=== PATIENT | female | born 1985 | race Caucasian/White ===

== ENCOUNTER 2017-09-24 13:31 | Emergency (ER) | payer SELFPAY ==
[~2017-09-24] VITALS: Ht 160 cm; Wt 90.0 kg
[~2017-09-24 13:31] MED LIST: ACYCLOVIR800 MG PO; ALAVERT1 TAB PO; ALLERGY1 TAB PO; AMOXICILLIN500 MG PO; AMOXICILLIN875 MG PO; ANUCORT-HC25 MG TOP; BACTRIM DS1 TAB PO; CIPROFLOXACN500 MG OR; CIPROFLOXACN500 MG PO; CLINDAMYCIN11 EX; DOXYCYC MONO100 M1 PO; DOXYCYCL HYC100 MG OR; FLONASE NASAL50 MCG; IBUPROFEN600 MG PO; LORTAB5 PO; MUCINEX600 MG PO; NO; NORCO1 TA1 PO; PRE-NATAL PO; SINGULAIR 10 MG10 MG; TERBINAFINE250 MG OR; ZITHROMAX250 MG PO; ZOFRAN ODT8 MG SL; ZOVIRAX51 EX; ZOVIRAX51 TOP; ZYRTEC10 MG PO; [UNRECOGNIZED DRUG - OTHER] EX
[2017-09-24 14:49] LABS: URINE BILIRUBIN - DIPSTICK NEGATIVE (NEGATIVE); URINE BLOOD DIPSTICK LARGE (NEGATIVE); URINE COLOR YELLOW; URINE GLUCOSE - DIPSTICK NEGATIVE (NEGATIVE); URINE KETONE NEGATIVE (NEGATIVE); URINE LEUK ESTERASE NEGATIVE (NEGATIVE); URINE PH 6.5 (4.5-8.0); URINE PROTEIN - DIPSTICK TRACE mg/dL (NEG-TRACE); URINE SPECIFIC GRAVITY 1.025; URINE UROBILINOGEN - DIPSTICK 0.2 E.U./dL (0.2)
[2017-09-24 14:51] LABS: IMMATURE GRANULOCYTES 0.3 % (0.0-5.0); MEAN CELL VOLUME 95.1 fL CALC (80.0-100.0); MEAN CORPUSCULAR HGB 32.1 pG CALC (26.0-32.0); MEAN CORPUSCULAR HGB CONC 33.7 g/L CALC (32.0-36.0); NEUT# 8.87 thou/uL (2.00-7.15); RED BLOOD COUNT 4.52 mill/uL (4.20-5.60); RED CELL DISTRI WIDTH 12.2 % (11.5-15.5); URINE CLARITY CLEAR
[2017-09-24 14:52] LABS: HEMOGLOBIN 14.5 g/dl (12.0-16.0); URINE NITRITE - DIPSTICK NEGATIVE (Negative)
[2017-09-24 14:57] LABS: URINE BACTERIA RARE hpf; URINE EPITHELIAL CELLS RARE EPI/hpf (0-FEW); URINE WBC 0-2 WBC/hpf (0-5)
[2017-09-24 15:05] LABS: ALKALINE PHOSPHATASE 130 u/l (38-126); ANION GAP 19 (6-22 (CALC)); BILIRUBIN, TOTAL 0.8 mg/dL (0.0-1.4); BUN 15 mg/dL (7-17); BUN/CREATININE RATIO 18 (12-20 (CALC)); CARBON DIOXIDE 23 mmol/l (22-30); CHLORIDE 104 mmol/l (95-108); CREATININE 0.8 mg/dL (0.5-1.0); GFR > 60 ML/MIN (>=60 (CALC)); GFR FOR AFR.AMER. > 60 ML/MIN (>=60 (CALC)); LIPASE 79 u/l (23-300); POTASSIUM 4.4 mmol/l (3.5-5.1); SGPT/ALT 20 u/l (9-52); SODIUM 141 mmol/l (137-146)
[2017-09-24 15:08] LABS: ALBUMIN 4.7 g/dL (3.2-5.0); SGOT/AST 45 u/l (14-36); TOTAL PROTEIN 8.4 g/dL (6.3-8.2)
[2017-09-24] MEDS ORDERED: CIPRO XR500 MG PO (15:50)
[2017-09-24] MEDS ORDERED: PERCOCET 5/325M1 TAB PO (15:57)
[2017-09-24] MEDS ORDERED: TAMSULOSIN0.4 MG PO (15:57)
[2017-09-24] MEDS ORDERED: KEFLEX500 M1 PO (15:57)
[2017-09-24 16:05] VITALS: BP 139/71
== END 2017-09-24 16:05 | disposition home or self-care (01) | DRG 694 ==
LOC: ED 13:31
DX: N20.0 Calculus of kidney (principal); Z87.442 Personal history of urinary calculi

== ENCOUNTER 2017-11-24 19:59 | Emergency (ER) | payer OTHER ==
[~2017-11-24] VITALS: Ht 157.5 cm; Wt 68.1 kg
[~2017-11-24 19:59] MED LIST changes: +CIPRO XR500 MG PO; +KEFLEX500 M1 PO; +PERCOCET 5/325M1 TAB PO; +TAMSULOSIN0.4 MG PO
[2017-11-24 20:34] LABS: HEMOGLOBIN 13.7 g/dl (12.0-16.0); IMMATURE GRANULOCYTES 0.7 % (0.0-5.0); MEAN CORPUSCULAR HGB 32.1 pG CALC (26.0-32.0); MEAN CORPUSCULAR HGB CONC 33.4 g/L CALC (32.0-36.0); NEUT# 14.72 thou/uL (2.00-7.15); RED BLOOD COUNT 4.27 mill/uL (4.20-5.60); RED CELL DISTRI WIDTH 12.2 % (11.5-15.5)
[2017-11-24 20:35] LABS: URINE BILIRUBIN - DIPSTICK NEGATIVE (NEGATIVE); URINE BLOOD DIPSTICK TRACE-INTACT (NEGATIVE); URINE CLARITY CLEAR; URINE COLOR YELLOW; URINE GLUCOSE - DIPSTICK NEGATIVE (NEGATIVE); URINE KETONE NEGATIVE (NEGATIVE); URINE LEUK ESTERASE NEGATIVE (NEGATIVE); URINE NITRITE - DIPSTICK NEGATIVE (Negative); URINE PH 6.5 (4.5-8.0); URINE PROTEIN - DIPSTICK NEGATIVE (NEG-TRACE); URINE UROBILINOGEN - DIPSTICK 0.2 E.U./dL (0.2)
[2017-11-24 20:40] LABS: ALBUMIN 4.4 g/dL (3.2-5.0); ALKALINE PHOSPHATASE 90 u/l (38-126); ANION GAP 15 (6-22 (CALC)); BILIRUBIN, TOTAL 0.3 mg/dL (0.0-1.4); BUN 16 mg/dL (7-17); BUN/CREATININE RATIO 20 (12-20 (CALC)); CARBON DIOXIDE 27 mmol/l (22-30); CHLORIDE 105 mmol/l (95-108); CREATININE 0.8 mg/dL (0.5-1.0); GFR > 60 ML/MIN (>=60 (CALC)); GFR FOR AFR.AMER. > 60 ML/MIN (>=60 (CALC)); POTASSIUM 3.8 mmol/l (3.5-5.1); SGOT/AST 24 u/l (14-36); SODIUM 142 mmol/l (137-146); TOTAL PROTEIN 7.3 g/dL (6.3-8.2)
[2017-11-24] MEDS ORDERED: CIPROFLOXACN500 MG PO (22:07)
[2017-11-24] MEDS ORDERED: TAMSULOSIN0.4 MG PO (22:07)
[2017-11-24] MEDS ORDERED: PERCOCET 5/321 COMBO PO (22:07)
[2017-11-24] MEDS ORDERED: PHENERGAN25 MG RE (22:07)
[2017-11-24 22:45] VITALS: BP 124/78
== END 2017-11-24 22:45 | disposition home or self-care (01) ==
LOC: ED 19:59
PROVIDERS: Family Medicine
DX: N13.2 Hydronephrosis with renal and ureteral calculous obstruction (principal); Z87.442 Personal history of urinary calculi; R10.32 Left lower quadrant pain; R11.2 Nausea with vomiting, unspecified

== ENCOUNTER 2018-09-05 15:33 | Emergency (ER) | payer SELFPAY ==
[~2018-09-05] VITALS: Ht 157.5 cm; Wt 80.0 kg
[~2018-09-05 15:33] MED LIST changes: +PERCOCET 5/321 COMBO PO; +PHENERGAN25 MG RE
[2018-09-05 16:51] LABS: HEMATOCRIT 41.2 % (37.0-47.0); HEMOGLOBIN 13.7 g/dl (12.0-16.0); IMMATURE GRANULOCYTES 0.3 % (0.0-5.0); MEAN CELL VOLUME 94.7 fL CALC (80.0-100.0); MEAN CORPUSCULAR HGB 31.5 pG CALC (26.0-32.0); MEAN CORPUSCULAR HGB CONC 33.3 g/L CALC (32.0-36.0); NEUT# 5.46 thou/uL (2.00-7.15); RED BLOOD COUNT 4.35 mill/uL (4.20-5.60); RED CELL DISTRI WIDTH 12.3 % (11.5-15.5)
[2018-09-05 17:15] LABS: BUN 15 mg/dL (7-17); BUN/CREATININE RATIO 19 (12-20 (CALC)); CARBON DIOXIDE 25 mmol/l (22-30); CHLORIDE 104 mmol/l (95-108); CREATININE 0.8 mg/dL (0.5-1.0); GFR > 60 ML/MIN (>=60 (CALC)); GFR FOR AFR.AMER. > 60 ML/MIN (>=60 (CALC)); SODIUM 139 mmol/l (137-146)
[2018-09-05 17:19] LABS: ANION GAP 15 (6-22 (CALC)); POTASSIUM 4.6 mmol/l (3.5-5.1)
[2018-09-05 18:24] LABS: TSH, 3RD GENERATION 2.07 uIU/mL (0.47 - 4.68)
[2018-09-05 18:53] VITALS: BP 136/84
== END 2018-09-05 18:55 | disposition home or self-care (01) | DRG 310 ==
LOC: ED 15:33
PROVIDERS: Family Medicine
DX: R00.2 Palpitations (principal); R07.9 Chest pain, unspecified

== ENCOUNTER 2019-11-19 16:15 | Emergency (ER) | payer SELFPAY ==
[~2019-11-19] VITALS: Ht 157.5 cm; Wt 77.3 kg
[2019-11-19 16:57] LABS: HEMOGLOBIN 13.8 g/dl (12.0-16.0); IMMATURE GRANULOCYTES 0.2 % (0.0-5.0); MEAN CELL VOLUME 93.4 fL CALC (80.0-100.0); MEAN CORPUSCULAR HGB 31.4 pG CALC (26.0-32.0); MEAN CORPUSCULAR HGB CONC 33.7 g/dL CAL (32.0-36.0); NEUT# 6.24 thou/uL (2.00-7.15); RED BLOOD COUNT 4.39 mill/uL (4.20-5.60); RED CELL DISTRI WIDTH 12.4 % (11.5-15.5)
[2019-11-19 17:17] LABS: ALBUMIN 4.2 g/dL (3.2-5.0); ALKALINE PHOSPHATASE 81 u/l (38-126); ANION GAP 13 (6-22 (CALC)); BILIRUBIN, TOTAL 0.3 mg/dL (0.0-1.4); BUN 11 mg/dL (7-17); BUN/CREATININE RATIO 14 (12-20 (CALC)); CARBON DIOXIDE 25 mmol/l (22-30); CHLORIDE 103 mmol/l (95-108); CREATININE 0.8 mg/dL (0.5-1.0); GFR > 60 ML/MIN (>=60 (CALC)); GFR FOR AFR.AMER. > 60 ML/MIN (>=60 (CALC)); SGOT/AST 19 u/l (14-36); SODIUM 137 mmol/l (137-146); TOTAL PROTEIN 7.1 g/dL (6.3-8.2)
[2019-11-19 17:33] LABS: BETA-HCG, QUANT(RESULT NUMBER) 9 mIU/mL
[2019-11-19 17:35] LABS: POTASSIUM 3.6 mmol/l (3.5-5.1)
[2019-11-19 19:34] VITALS: BP 158/86
== END 2019-11-19 19:34 | disposition home or self-care (01) | DRG 779 ==
LOC: ED 16:15
PROVIDERS: Family Medicine
DX: O03.4 Incomplete spontaneous abortion without complication (principal)

== ENCOUNTER 2020-07-09 14:20 | Emergency (ER) | payer OTHER ==
[~2020-07-09] VITALS: Ht 157.5 cm; Wt 81.0 kg
[2020-07-09 14:50] LABS: HEMATOCRIT 36.8 % (37.0-47.0); HEMOGLOBIN 12.3 g/dl (12.0-16.0); IMMATURE GRANULOCYTES 0.2 % (0.0-5.0); MEAN CELL VOLUME 94.6 fL CALC (80.0-100.0); MEAN CORPUSCULAR HGB 31.6 pG CALC (26.0-32.0); MEAN CORPUSCULAR HGB CONC 33.4 g/dL CAL (32.0-36.0); NEUT# 9.92 thou/uL (2.00-7.15); RED BLOOD COUNT 3.89 mill/uL (4.20-5.60); RED CELL DISTRI WIDTH 13.4 % (11.5-15.5); URINE BILIRUBIN - DIPSTICK NEGATIVE (NEGATIVE); URINE BLOOD DIPSTICK MODERATE (NEGATIVE); URINE COLOR YELLOW; URINE GLUCOSE - DIPSTICK NEGATIVE (NEGATIVE); URINE KETONE NEGATIVE (NEGATIVE); URINE PH 6.5 (4.5-8.0); URINE PROTEIN - DIPSTICK 30 mg/dL (NEG-TRACE); URINE UROBILINOGEN - DIPSTICK 0.2 E.U./dL (0.2)
[2020-07-09 15:00] LABS: URINE LEUK ESTERASE MODERATE (NEGATIVE); URINE NITRITE - DIPSTICK POSITIVE (Negative)
[2020-07-09 15:01] LABS: URINE BACTERIA MODERATE hpf; URINE SQUAMOUS EPITHELIAL CELL MANY EPI/hpf (0-FEW)
[2020-07-09 15:11] LABS: ALBUMIN 3.6 g/dL (3.2-5.0); ALKALINE PHOSPHATASE 103 u/l (38-126); ANION GAP 11 (6-22 (CALC)); BILIRUBIN, TOTAL 0.3 mg/dL (0.0-1.4); BUN 7 mg/dL (7-17); BUN/CREATININE RATIO 10 (12-20 (CALC)); CARBON DIOXIDE 23 mmol/l (22-30); CHLORIDE 103 mmol/l (95-108); CREATININE 0.7 mg/dL (0.5-1.0); GFR > 60 ML/MIN (>=60 (CALC)); GFR FOR AFR.AMER. > 60 ML/MIN (>=60 (CALC)); POTASSIUM 3.7 mmol/l (3.5-5.1); SGOT/AST 19 u/l (14-36); SODIUM 133 mmol/l (137-146); TOTAL PROTEIN 6.5 g/dL (6.3-8.2)
[2020-07-09 15:52] VITALS: BP 133/68
[2020-08-23] MEDS ORDERED: BL IBUPROFEN200 MG PO (13:11)
[2020-08-23] MEDS ORDERED: EQ PAIN RELIEV325 MG PO (13:12)
[2020-08-23] MEDS ORDERED: IRON (FERROUS S50 MG PO (13:13)
[2020-08-23] MEDS ORDERED: MIRALAX MIX-IN17 GM PO (13:14)
== END 2020-07-09 15:45 ==
LOC: ED 14:20
DX: O23.03 Infections of kidney in pregnancy, third trimester (principal); B95.2 Enterococcus as the cause of diseases classified elsewhere; Z3A.32 32 weeks gestation of pregnancy; Z87.442 Personal history of urinary calculi

== ENCOUNTER → 2020-08-27 | Day surgery (SDC) | payer OTHER ==
[~2020-08-27] MED LIST changes: +BL IBUPROFEN200 MG PO; +EQ PAIN RELIEV325 MG PO; +IRON (FERROUS S50 MG PO; +KEFLEX500 MG PO; +MIRALAX MIX-IN17 GM PO
[2020-08-27 11:25] VITALS: BP 127/72
== END | disposition home or self-care (01) ==
LOC: ORM 07:38
PROVIDERS: ATTEND Urology
DX: N20.1 Calculus of ureter (principal); Q62.5 Duplication of ureter; Z87.442 Personal history of urinary calculi
CPT/HCPCS: J0131; Q9967

== ENCOUNTER 2020-08-28 21:53 | Emergency (ER) | payer OTHER ==
[~2020-08-28] VITALS: Ht 157.5 cm; Wt 80.0 kg
[~2020-08-28 21:53] MED LIST changes: -KEFLEX500 MG PO
[2020-08-28 23:42] LABS: HEMATOCRIT 35.6 % (37.0-47.0); HEMOGLOBIN 11.6 g/dl (12.0-16.0); IMMATURE GRANULOCYTES 0.3 % (0.0-5.0); MEAN CELL VOLUME 93.4 fL CALC (80.0-100.0); MEAN CORPUSCULAR HGB 30.4 pG CALC (26.0-32.0); MEAN CORPUSCULAR HGB CONC 32.6 g/dL CAL (32.0-36.0); NEUT# 11.67 thou/uL (2.00-7.15); RED BLOOD COUNT 3.81 mill/uL (4.20-5.60); RED CELL DISTRI WIDTH 12.1 % (11.5-15.5)
[2020-08-29 00:21] LABS: ALBUMIN 3.4 g/dL (3.2-5.0); ALKALINE PHOSPHATASE 82 u/l (38-126); ANION GAP 12 (6-22 (CALC)); BILIRUBIN, TOTAL 0.2 mg/dL (0.0-1.4); BUN 12 mg/dL (7-17); BUN/CREATININE RATIO 13 (12-20 (CALC)); CARBON DIOXIDE 22 mmol/l (22-30); CHLORIDE 106 mmol/l (95-108); CREATININE 0.9 mg/dL (0.5-1.0); GFR > 60 ML/MIN (>=60 (CALC)); GFR FOR AFR.AMER. > 60 ML/MIN (>=60 (CALC)); POTASSIUM 3.3 mmol/l (3.5-5.1); SGOT/AST 26 u/l (14-36); SODIUM 136 mmol/l (137-146); TOTAL PROTEIN 6.5 g/dL (6.3-8.2)
[2020-08-29 00:25] LABS: URINE BILIRUBIN - DIPSTICK NEGATIVE (NEGATIVE); URINE BLOOD DIPSTICK LARGE (NEGATIVE); URINE COLOR YELLOW; URINE GLUCOSE - DIPSTICK NEGATIVE (NEGATIVE); URINE KETONE NEGATIVE (NEGATIVE); URINE PROTEIN - DIPSTICK TRACE mg/dL (NEG-TRACE); URINE UROBILINOGEN - DIPSTICK 0.2 E.U./dL (0.2)
[2020-08-29 00:27] LABS: URINE LEUK ESTERASE SMALL (NEGATIVE); URINE NITRITE - DIPSTICK NEGATIVE (Negative)
[2020-08-29] MEDS ORDERED: KEFLEX500 MG PO (00:46)
[2020-08-29 00:49] LABS: URINE BACTERIA FEW hpf; URINE RBC 50-100 RBC/hpf (0-5); URINE SQUAMOUS EPITHELIAL CELL FEW EPI/hpf (0-FEW); URINE WBC 20-50 WBC/hpf (0-5)
[2020-08-29 01:03] VITALS: BP 123/70
== END 2020-08-29 01:10 | disposition home or self-care (01) ==
LOC: ED 21:53
PROVIDERS: Family Medicine
DX: N39.0 Urinary tract infection, site not specified (principal); Z87.442 Personal history of urinary calculi; Z98.890 Other specified postprocedural states; Z20.822 Contact with and (suspected) exposure to COVID-19

== ENCOUNTER 2020-11-17 12:59 | Emergency (ER) | payer OTHER ==
[~2020-11-17] VITALS: Ht 157.5 cm; Wt 68.0 kg
[~2020-11-17 12:59] MED LIST changes: +KEFLEX500 MG PO
[2020-11-17 13:50] LABS: URINE BILIRUBIN - DIPSTICK NEGATIVE (NEGATIVE); URINE BLOOD DIPSTICK SMALL (NEGATIVE); URINE COLOR YELLOW; URINE GLUCOSE - DIPSTICK NEGATIVE (NEGATIVE); URINE KETONE TRACE mg/dL (NEGATIVE); URINE PROTEIN - DIPSTICK TRACE mg/dL (NEG-TRACE); URINE UROBILINOGEN - DIPSTICK 0.2 E.U./dL (0.2)
[2020-11-17 13:51] LABS: HEMATOCRIT 38.9 % (37.0-47.0); HEMOGLOBIN 12.6 g/dl (12.0-16.0); IMMATURE GRANULOCYTES 0.2 % (0.0-5.0); MEAN CELL VOLUME 90.3 fL CALC (80.0-100.0); MEAN CORPUSCULAR HGB 29.2 pG CALC (26.0-32.0); MEAN CORPUSCULAR HGB CONC 32.4 g/dL CAL (32.0-36.0); NEUT# 16.6 thou/uL (2.00-7.15); RED BLOOD COUNT 4.31 mill/uL (4.20-5.60); RED CELL DISTRI WIDTH 13.5 % (11.5-15.5)
[2020-11-17 13:52] LABS: URINE LEUK ESTERASE SMALL (NEGATIVE); URINE NITRITE - DIPSTICK NEGATIVE (Negative)
[2020-11-17 14:00] LABS: URINE BACTERIA MODERATE hpf; URINE SQUAMOUS EPITHELIAL CELL MANY EPI/hpf (0-FEW)
[2020-11-17 14:03] LABS: ALKALINE PHOSPHATASE 112 u/l (38-126); BUN 15 mg/dL (7-17); BUN/CREATININE RATIO 15 (12-20 (CALC)); CARBON DIOXIDE 25 mmol/l (22-30); CHLORIDE 103 mmol/l (95-108); GFR > 60 ML/MIN (>=60 (CALC)); GFR FOR AFR.AMER. > 60 ML/MIN (>=60 (CALC)); SGOT/AST 16 u/l (14-36); SODIUM 139 mmol/l (137-146); TOTAL PROTEIN 7.3 g/dL (6.3-8.2)
[2020-11-17 14:09] LABS: ALBUMIN 4.1 g/dL (3.2-5.0); ANION GAP 15 (6-22 (CALC)); BILIRUBIN, TOTAL 0.7 mg/dL (0.0-1.4); POTASSIUM 4.1 mmol/l (3.5-5.1)
[2020-11-17] MEDS ORDERED: KEFLEX500 MG PO (15:22)
[2020-11-17 15:43] VITALS: BP 136/95
== END 2020-11-17 15:53 | disposition home or self-care (01) ==
LOC: ED 12:59
PROVIDERS: Emergency Medicine
DX: N13.6 Pyonephrosis (principal); Z87.442 Personal history of urinary calculi

== ENCOUNTER 2020-11-18 13:33 | Observation (INO) | payer OTHER ==
[~2020-11-18] VITALS: Ht 157.5 cm; Wt 74.0 kg
[2020-11-18] VITALS (7 sets, daily range): BP systolic 125–130; BP diastolic 67–89
--- NOTE | 2020-11-18 13:35 | NUR ---
PATIENT AMBULATORY TO ROOM. BEDSIDE TRIAGE COMPLETED
[2020-11-18 14:08] LABS: HEMATOCRIT 38.4 % (37.0-47.0); HEMOGLOBIN 12.4 g/dl (12.0-16.0); IMMATURE GRANULOCYTES 0.1 % (0.0-5.0); MEAN CELL VOLUME 90.6 fL CALC (80.0-100.0); MEAN CORPUSCULAR HGB 29.2 pG CALC (26.0-32.0); MEAN CORPUSCULAR HGB CONC 32.3 g/dL CAL (32.0-36.0); NEUT# 16.41 thou/uL (2.00-7.15); RED BLOOD COUNT 4.24 mill/uL (4.20-5.60); RED CELL DISTRI WIDTH 13.7 % (11.5-15.5)
[2020-11-18 14:35] LABS: ALKALINE PHOSPHATASE 115 u/l (38-126); ANION GAP 13 (6-22 (CALC)); BUN 18 mg/dL (7-17); BUN/CREATININE RATIO 16 (12-20 (CALC)); CARBON DIOXIDE 25 mmol/l (22-30); CHLORIDE 106 mmol/l (95-108); CREATININE 1.2 mg/dL (0.5-1.0); GFR 52 ML/MIN (>=60 (CALC)); GFR FOR AFR.AMER. > 60 ML/MIN (>=60 (CALC)); POTASSIUM 3.6 mmol/l (3.5-5.1); SGOT/AST 18 u/l (14-36); SODIUM 141 mmol/l (137-146); TOTAL PROTEIN 7.6 g/dL (6.3-8.2)
[2020-11-18 14:42] LABS: BILIRUBIN, TOTAL 0.4 mg/dL (0.0-1.4)
--- NOTE | 2020-11-18 15:00 | NUR ---
PT ADVISED THAT WAS WANTING TO ADMIT HER FOR Tesfaye GAONA TO SEE HER TONIGHT, PT STATES SHE DOESNT WANT TO STAY, AFTER DR. BARRON SPEAKING TO HER, SHE STATED THAT SHE WANTED HER AND TWO SMALL CHILDREN TO COME IN AND SEE HER, NOTIFIED CHARGE NURSE WHO STATES THAT COULD COME IN BUT TWO CHILDREN WOULD NOT BE ABLE TO. PT BECAME UPSET AND STATES SHE WOULD JUST LEAVE, SPOKE TO PT THAT SHE NEEDED THE STENT OR INFECTION COULD GET WORSE, PT THEN STATED THAT HER FAMILY WOULD HAVE TO STAY WITH HER BECAUSE SHE BREAST FEEDS, STATED THAT ONLY ONE VISIOTR FOR ONE HOUR ADAY AND NO CHILDREN WERE ALLOWED BUT THAT I WOULD SPEAK TO ADMINISTRATION AND THEY COULD COME TALK TO HER. RISK MANAGEMENT NOTIFIED.
--- NOTE | 2020-11-18 15:58 | NUR ---
PT HAS DECIDED THAT SHE WILL STAY AND HAVE PROCEDURE DONE, OBTAINED COVID, TRYING FOR IV ACCESS AT THIS TIME, LONNIE FROM [facility] CAME TO SPEAK WITH PT, BECAUSE PT HAS EATEN IN LAST 4 HOURS THEY WILL BE WAITING UNTIL AROUND 7 TO TAKE PT TO SURGERY
--- NOTE | 2020-11-18 16:13 | NUR ---
PT HAS DECIDED TO STAY AND WILL ALLOW IV ACCESS, PUMP HAS BEEN LOCATED AND WILL BE AVAILABLE. AND PT IS TO BEGIN PUMPING SOON SHE CAN FOR TONIGHT
--- NOTE | 2020-11-18 17:30 | NUR ---
MILANA FROM OR HERE TO HOISTING MACHINE OPERATOR PT AND REPORT CALLED TO
[2020-11-18 18:33] LABS: URINE BILIRUBIN - DIPSTICK NEGATIVE (NEGATIVE); URINE BLOOD DIPSTICK SMALL (NEGATIVE); URINE COLOR YELLOW; URINE GLUCOSE - DIPSTICK NEGATIVE (NEGATIVE); URINE KETONE NEGATIVE (NEGATIVE); URINE PROTEIN - DIPSTICK TRACE mg/dL (NEG-TRACE); URINE SPECIFIC GRAVITY 1.025; URINE UROBILINOGEN - DIPSTICK 0.2 E.U./dL (0.2)
--- NOTE | 2020-11-18 18:35 | NUR ---
REPORT RECEIVED FROM VAUGHNRN
[2020-11-18 18:38] LABS: URINE LEUK ESTERASE SMALL (NEGATIVE); URINE NITRITE - DIPSTICK NEGATIVE (Negative)
[2020-11-18 18:46] LABS: URINE SQUAMOUS EPITHELIAL CELL FEW EPI/hpf (0-FEW)
--- NOTE | 2020-11-18 19:40 | NUR ---
RECEIVED PATIENT TO THE FLOOR/ROOM AT 1940 VIA STRETCHER FROM THE OR WITH NURSE ESCORT IN STABLE CONDITION. PATIENT AMBULATED FROM STRETCHER TO BED WITHOUT DIFFICULTY. IVF INFUSING AT 125ML/HR. VAD #20 RW PATENT WITH DRESSING CDI. PATIENT REPORTS HAVING ALLERGY TO ADHESIVE TAPE. WILL MONITOR VAD DRESSING DUE TO ADHESIVE. PATIENT IS ALERT AND ORIENTED X4. ABLE TO MAKE NEEDS KNOWN. RESPIRATIONS EVEN AND UNLABORED. DENIES PAIN. HR REG. SKIN INTACT. ASSESSMENT COMPLETED AND CHARTED. BED IN LOW POSITION. CALL LIGHT WITHIN REACH.
--- NOTE | 2020-11-18 21:00 | NUR ---
PATIENT REFUSED SQ LOVENOX. IVF INFUSING.
--- NOTE | 2020-11-19 | NUR ---
PATIENT RESTING QUIETLY. RESPIRATIONS NONLABORED. IVF INFUSING. BED IN LOW POSITION. CALL LIGHT WITHIN REACH.
--- NOTE | 2020-11-19 01:45 | NUR ---
PATIENT REQUESTED THAT IVF BE DECREASED D/T CHILLS AND LEFT HAND DISCOMFORT. VAD LW PATIENT AND INFUSING NS AT 75ML/HR. PATIENT REPORTS FEELING BETTER. BLANKET X2 GIVEN TO PATIENT FOR COMFORT. BED IN LOW POSITION. CALL LIGHT WITHIN REACH.
[2020-11-19 03:37] VITALS: BP 144/72
--- NOTE | 2020-11-19 05:14 | NUR ---
PATIENT REPORTS NOT ABLE TO SLEEP THIS EVENING. WARM PACK TO NECK/HEAD IMPROVED DISCOMFORT.
[2020-11-19 05:39] LABS: HEMATOCRIT 34.2 % (37.0-47.0); HEMOGLOBIN 10.9 g/dl (12.0-16.0); MEAN CELL VOLUME 91.2 fL CALC (80.0-100.0); MEAN CORPUSCULAR HGB 29.1 pG CALC (26.0-32.0); MEAN CORPUSCULAR HGB CONC 31.9 g/dL CAL (32.0-36.0); RED BLOOD COUNT 3.75 mill/uL (4.20-5.60); RED CELL DISTRI WIDTH 13.8 % (11.5-15.5)
[2020-11-19 06:17] LABS: ANION GAP 14 (6-22 (CALC)); BUN 13 mg/dL (7-17); BUN/CREATININE RATIO 15 (12-20 (CALC)); CARBON DIOXIDE 20 mmol/l (22-30); CHLORIDE 107 mmol/l (95-108); CREATININE 0.8 mg/dL (0.5-1.0); GFR > 60 ML/MIN (>=60 (CALC)); GFR FOR AFR.AMER. > 60 ML/MIN (>=60 (CALC)); MAGNESIUM 1.5 mg/dL (1.6-2.3); POTASSIUM 3.6 mmol/l (3.5-5.1); SODIUM 138 mmol/l (137-146)
--- NOTE | 2020-11-19 07:00 | NUR ---
RECIEVED REPORT FROM [facility]
[2020-11-19 07:36] VITALS: BP 113/71
--- NOTE | 2020-11-19 07:36 | NUR ---
PT RESTING IN SEMI FOWLERS POSITION. PT IS A/O X3. ASSESSMENT AND VITALS COMPLETED.TEMP 99.0, BP 113/71, HR 106, O2 97% ON ROOM AIR.RESPIRATIONS ARE EVEN AND UNLABORED WITH NO DISTRESS NOTED. LUNG SOUNDS ARE CLEAR. HEART RHYTHM NORMAL. BOWEL SOUNDS ARE ACTIVE. LBM 11/17/20. PULSES STRONG. #20G LW INFUSING WITH IVF AT 75, SITE APPEARS HEALTHY AND PATENT WITH SOME TENDERNESS. SKIN INTACT. PT COMPLAINS OF 3/10 LEFT FLANK PAIN, PT REQUEST TYLENOL. ALL SAFETY PRECAUTIONS ARE IN PLACE WITH CALL LIGHT IN REACH. WILL CONTINUE TO MONITOR
--- NOTE | 2020-11-19 10:17 | NUR ---
DR RUIZ AND BONY,ANRP AT BEDSIDE
[2020-11-19 10:40] VITALS: BP 120/68
[2020-11-19] MEDS ORDERED: OMNICEF300 MG PO (11:10)
--- NOTE | 2020-11-19 11:58 | NUR ---
PT RESTING IN SEMI FOWLERS POSITION. RESPIRATIONS ARE EVEN AND UNLABORED WITH NO DISTRESS NOTED. MAG INFUSING IN #20G LW, SITE APPEARS HEALTHY AND PATENT. PT INFORMED OF DC AFTER ANTIBIOTICS. PT VERBALIZED UNDERSTANDING. ALL SAFETY PRECAUTIONS ARE IN PLACE WITH CALL LIGHT IN REACH. WILL CONTINUE TO MONITOR
--- NOTE | 2020-11-19 12:57 | NUR ---
PT EDUCATED ON DC INSTRUCTIONS AND NEW MEDICATIONS. PT VERBALIZED UNDERSTANDING. IV ANTIBIOTICS INFUSING, SITE REMAINS HEALTHY AND PATENT. WILL CONTINUE TO MONITOR
--- NOTE | 2020-11-19 13:15 | NUR ---
IV INFUSION COMPLETED. IV REMOVED WITH CATH STILL INTACT. WILL CONTINUE TO MONITOR
--- NOTE | 2020-11-19 13:39 | NUR ---
AT BEDSIDE WITH CLOTHING FOR DC
--- NOTE | 2020-11-19 13:50 | NUR ---
Discharge instructions given. Patient verbalizes understanding of same. Discharged in stable condition via Wheelchair to Home with staff. All belongings sent with pt. PT DC IN STABLE CONDITION ACCOMAINED BY [facility] AND VIA WHEELCHAIR WITH ALL DC INSTRUCTIONS AND PERSONAL BELONGINGS.
== END 2020-11-19 13:51 | disposition home or self-care (01) ==
LOC: ED 13:33 → ED-I 15:23 → ED 15:25 → MS2 15:26
PROVIDERS: Family Medicine; Nurse Practitioner; ADMIT Internal Medicine; ATTEND Internal Medicine
DX: N20.1 Calculus of ureter (principal); N39.0 Urinary tract infection, site not specified; N17.9 Acute kidney failure, unspecified; Z87.442 Personal history of urinary calculi; Z20.822 Contact with and (suspected) exposure to COVID-19
CPT/HCPCS: C1769; J1650; J3475; Q9967

== ENCOUNTER 2020-12-24 11:14 | Day surgery (SDC) | payer OTHER ==
[~2020-12-24] VITALS: Ht 157.5 cm; Wt 72.6 kg
[~2020-12-24 11:14] MED LIST changes: +IBUPROFEN200 MG PO; +OMNICEF300 MG PO
[2020-12-24 15:30] VITALS: BP 119/64
== END 2020-12-24 15:40 | disposition home or self-care (01) ==
LOC: ORM 11:14
PROVIDERS: ATTEND Urology
DX: N20.0 Calculus of kidney (principal); Z87.442 Personal history of urinary calculi
CPT/HCPCS: C1769; J0131; J1956; Q9967

== ENCOUNTER → 2022-01-11 | Emergency (ER) | payer OTHER ==
[~2022-01-11] VITALS: Ht 157.5 cm; Wt 77.2 kg
[2022-01-11] VITALS (20 sets, daily range): BP systolic 104–133; BP diastolic 49–82
[~2022-01-11] MED LIST changes: +DITROPAN XL5 MG PO; +OXYCODONE5 M1 PO
[2022-01-11 14:51] LABS: HEMATOCRIT 37.9 % (37.0-47.0); HEMOGLOBIN 12.8 g/dl (12.0-16.0); IMMATURE GRANULOCYTES 0.3 % (0.0-5.0); MEAN CELL VOLUME 92.7 fL CALC (80.0-100.0); MEAN CORPUSCULAR HGB 31.3 pG CALC (26.0-32.0); MEAN CORPUSCULAR HGB CONC 33.8 g/dL CAL (32.0-36.0); NEUT# 15.12 thou/uL (2.00-7.15); RED BLOOD COUNT 4.09 mill/uL (4.20-5.60); RED CELL DISTRI WIDTH 12.4 % (11.5-15.5)
[2022-01-11 15:28] LABS: ALKALINE PHOSPHATASE 86 u/l (38-126); ANION GAP 15 (6-22 (CALC)); BILIRUBIN, TOTAL 0.4 mg/dL (0.0-1.4); BUN 16 mg/dL (7-17); BUN/CREATININE RATIO 18 (12-20 (CALC)); CARBON DIOXIDE 21 mmol/l (22-30); CHLORIDE 102 mmol/l (95-108); CREATININE 0.9 mg/dL (0.5-1.0); GFR FOR AFR.AMER. > 60 ML/MIN (>=60 (CALC)); GFR OTHER RACES > 60 ML/MIN (>=60 (CALC)); POTASSIUM 3.2 mmol/l (3.5-5.1); SGOT/AST 29 u/l (14-36); SODIUM 135 mmol/l (137-146); TOTAL PROTEIN 7.1 g/dL (6.3-8.2)
[2022-01-11 15:46] LABS: URINE BILIRUBIN - DIPSTICK NEGATIVE (NEGATIVE); URINE BLOOD DIPSTICK LARGE (NEGATIVE); URINE GLUCOSE - DIPSTICK NEGATIVE (NEGATIVE); URINE KETONE NEGATIVE (NEGATIVE); URINE PROTEIN - DIPSTICK 30 mg/dL (NEG-TRACE); URINE SPECIFIC GRAVITY <=1.005; URINE UROBILINOGEN - DIPSTICK 0.2 E.U./dL (0.2)
[2022-01-11 15:48] LABS: URINE COLOR DK. YELLOW; URINE LEUK ESTERASE MODERATE (NEGATIVE); URINE NITRITE - DIPSTICK NEGATIVE (Negative)
[2022-01-11 15:59] LABS: URINE SQUAMOUS EPITHELIAL CELL MODERATE EPI/hpf (0-FEW)
[2022-01-12] VITALS (19 sets, daily range): BP systolic 90–131; BP diastolic 30–86
== END | disposition short-term general hospital (02) ==
LOC: ED 14:00
PROVIDERS: Family Medicine
DX: Z96.0 Presence of urogenital implants (principal); N20.1 Calculus of ureter; Z87.442 Personal history of urinary calculi; A41.9 Sepsis, unspecified organism